=== PATIENT | male | born 1985 | race Caucasian/White ===

== ENCOUNTER 2020-12-21 09:31 | Emergency (ER) | payer MEDICAID, SELFPAY ==
[2020-12-21 09:33] VITALS: BP 130/66; PULSE 90; RESP 17; TEMP 36.3; O2SAT 97; BMI 26.1
--- NOTE | 2020-12-21 09:42 | ED.VIS.DENTA ---
HPI History of Present Illness Chief Complaint: Dental Informant: patient Onset/Context/Timing Onset: Yesterday Context: Gradual Onset Timing: Continuous Quality: aching Location: maxillary incisor Current Severity: Moderate Maximum Severity: Moderate Worsened by: eating Relieved by: NSAIDs Associated Symptoms Assocated Symptom - Dental: face swelling; Negative for fever Narrative Narrative: Patient with a history of chronic dental decay presenting with one of his decayed teeth becoming painful and some swelling in his upper lip. No fevers or systemic symptoms. PFSH PFSH no medical history Home Medications amoxicillin 875 mg PO BID #20 tab 12/21/20 [Rx Last Taken Unknown] Allergy/AdvReac Type Severity Reaction Status Date / Time acetaminophen [From Vicodin] AdvReac Nausea Verified 12/21/20 09:32 clindamycin AdvReac Vomiting Verified 12/21/20 09:32 hydrocodone [From Vicodin] AdvReac Nausea Verified 12/21/20 09:32 Social History (Updated 12/21/20 @ 09:[address] Jovanny Flor MD) Smoking Status: Unknown if ever smoked substance use type: does not use ROS ROS ED Constitutional Constitutional ED: Denies chills or fever(s) Eyes Eyes: Denies change in vision or double vision ENT ENT ED: Reports dental pain; Denies sinus pain or throat swelling Cardiovascular Cardiovascular: Denies chest pain or palpitations Respiratory/Chest Respiratory/Chest: Denies cough or dyspnea Integumentary Denies abscess or rash Neurologic Neurologic: Denies headache(s), paresthesias or weakness EXAM Physical Exam Const Vital Signs: 12/21/20 09:33 Temperature 97.3 F L Temperature Source Temporal Pulse Rate 90 Respiratory Rate 17 Blood Pressure 130/66 H Blood Pressure Mean 87 Pulse Ox 97 Oxygen Delivery Method Room Air Positive well nourished and well developed General Appearance ED: well developed and NAD HEENT Face and Sinus: sinuses nontender Teeth and Gingiva: poor dentition and other Other Details: All teeth are significantly decayed. The affected 1, tooth #9, also significantly decayed and tender, no bleeding or discharge, no gingivitis. The entire upper lip is mildly diffusely swollen. There is no fluctuance, pointing, discrete abscess. Throat: posterior oropharynx normal Eyes PERRL and EOMs intact bilaterally Neck no lymphadenopathy and supple Resp normal respiratory effort Neuro oriented x3 and CN's II-XII intact bilaterally Sensorium / Orientation: alert Gait (Neuro): normal gait Psych mental status grossly normal and thought process normal Skin no rashes or lesions noted and no wounds MDM MDM MDM Narrative Medical decision making narrative: Possibly early abscess formation, antibiotics indicated. Patient states he is here for that. Put on amoxicillin since he does not tolerate clindamycin well, discussed reasons to return and to follow-up with a dentist, he states he had dental insurance so he did not need a resource list. Discharge Plan Triage Chief Complaint: Dental ED Provider: Jovanny Flor Dx/Rx/DC Orders Clinical Impression: Dental decay, Infected dental caries Instructions: ED Abscess Antibiotic Treatment Only Prescriptions: New amoxicillin 875 mg tablet 875 mg PO BID Qty: 20 RF: 0 Primary Care Provider: Care Physician,No Primary Referrals: Dentist,Your [STAFF PHYSICIAN] - As soon as possible Disposition Disposition: Home, self care
[2020-12-21 10:01] VITALS: RESP 15
[2020-12-21] MEDS: AMOXICILLIN 500 MG CAPSULE PO (10:02)
== END 2020-12-21 10:03 | disposition home or self-care (01) ==
LOC: ED 09:59
PROVIDERS: Emergency Provider Emergency Medicine
DX: K02.9 Dental caries, unspecified (principal); K04.7 Periapical abscess without sinus
CPT/HCPCS: 99283